=== PATIENT | male | born 1955 | race Caucasian/White ===

== ENCOUNTER → 2016-11-21 | Outpatient (CLI) | payer OTHER ==
--- NOTE | 2016-11-21 08:25 | DX ---
Left Foot , Three Views History: Followup 5th metatarsal fracture, S92.355D Comparison: October 19, 2016 Findings: No change in alignment of the distal 5th metatarsal shaft fracture. There is a very subtle periosteal reaction and radiopaque callus identified. There is early demineralization of the 5th meta tarsal head. The remainder of the foot is stable and normal. Impression: Stable position. Very early evidence for healing.
== END ==
LOC: FIMAGING 06:57
PROVIDERS: ATTEND Family Medicine
DX: S92.355D Nondisplaced fracture of fifth metatarsal bone, left foot, subsequent encounter for fracture with routine healing (principal)